=== PATIENT | female | born 1985 | race Caucasian/White ===

== ENCOUNTER 2017-01-04 00:51 | Emergency (ER) | payer MEDICAID ==
[~2017-01-04] VITALS: Ht 154.9 cm; Wt 65.0 kg
[~2017-01-04 00:51] MED LIST: CIPR-9 PO; IBUP1TAB7 PO; PHEN0.4T PO
[2017-01-04 00:54] VITALS: BP 158/98; PULSE 89; RESP 16; TEMP 98.2; O2SAT 100
[2017-01-04] MEDS ORDERED: PRED50 PO (01:31)
[2017-01-04] MEDS ORDERED: ROBA750T PO (01:31)
[2017-01-04] MEDS ORDERED: IBUP1TAB7 PO (01:31)
--- NOTE | 2017-01-04 01:32 | PD ---
HPI Chief Complaint: Back/ Neck Pain or Injury Time Seen by Provider: 01:17 Travel History International Travel<30 days: No Contact w/Intl Traveler<30days: No Traveled to known affect area: No History of Present Illness HPI Patient is a 31-year-old female presented to emergency from for evaluation of upper back pain. Patient states it's been going on for approximately one week. She has not taken any medications to alleviate her pain. She denies any injury or trauma but reports a chronic history of upper back pain due to slipped disks, bulging disks. She denies any numbness or tingling in her upper extremities, she denies any headache or weakness. She rates her pain is a 7 out of 10 and states it's sore and aching. Patient states that she is in between primary doctors and her next appointment isn't until January 24, she normally takes Vicoprofen which was prescribed by her previous PCP. PFSH Past Medical History Hx Anticoagulant Therapy: No Cardiovascular Problems: No Chemotherapy: No Cerebrovascular Accident: No Diabetes: No Diminished Hearing: No Musculoskeletal: Yes (chronic back pain) Respiratory: No Immunizations Current: Yes Thyroid Disease: Yes (hyperthyroidism) Tetanus Vaccination: < 5 Years Influenza Vaccination: No ?: Not LMP: 01/02/2017 : 7 Para: 7 Past Surgical History Surgical History: No Previous Surgery Hysterectomy: No Social History Alcohol Use: No Tobacco Use: No Substance Use: No Allergies-Medications (Allergen,Severity, Reaction): Coded Allergies: Sulfa (Sulfonamide Antibiotics) (Unverified Allergy, Severe, Rash, ) amoxicillin (Unverified Allergy, Severe, Rash, 12/28/16) clavulanic acid (Unverified Allergy, Severe, Rash, 12/28/16) Reported Meds & Prescriptions Reported Meds & Active Scripts Active Cipro (Ciprofloxacin HCl) 500 Mg Tab 500 Mg PO BID 3 Days Pyridium (Phenazopyridine HCl) 100 Mg Tab 100 Mg PO Q8H PRN 3 Days Cipro (Ciprofloxacin HCl) 500 Mg Tab 500 Mg PO BID 7 Days Reported Ibuprofen 800 Mg Tab 800 Mg PO Q6HR PRN Review of Systems Except as stated in HPI: all other systems reviewed are Neg Musculoskeletal: Positive: Myalgias, Arthralgias Physical Exam Narrative GENERAL: Well-developed, well-nourished, alert female. Resting comfortably in no acute distress. SKIN: Warm and dry. HEAD: Normocephalic. EYES: No scleral icterus. No injection or drainage. NECK: Supple, trachea midline. No JVD or lymphadenopathy. Full range of motion with rotation, flexion and extension of neck. No meningeal signs noted. No spinal tenderness or step-off noted. CARDIOVASCULAR: Regular rate and rhythm without murmurs, gallops, or rubs. RESPIRATORY: Breath sounds equal bilaterally. No accessory muscle use. GASTROINTESTINAL: Abdomen soft, non-tender, nondistended. MUSCULOSKELETAL: No cyanosis, or edema. Mildly tender to palpation in the paraspinal musculature and thoracic region. No spinal tenderness or step-off noted. BACK: Nontender without obvious deformity. No CVA tenderness. Data Data Last Documented VS Vital Signs Date Time Temp Pulse Resp B/P (MAP) Pulse Ox O2 Delivery O2 Flow Rate FiO2 01/04/17 00:54 98.2 89 16 158/98 (118) 100 Room Air [facility] Medical Decision Making Medical Screen Exam Complete: Yes Emergency Medical Condition: Yes Medical Record Reviewed: Yes Interpretation(s) Vital Signs Date Time Temp Pulse Resp B/P (MAP) Pulse Ox O2 Delivery O2 Flow Rate FiO2 01/04/17 00:54 98.2 89 16 158/98 (118) 100 Room Air Differential Diagnosis Strain versus sprain versus spasm versus discogenic pain versus other Narrative Course Patient is a 31-year-old female presenting to the emergency room evaluation of acute on chronic upper back pain with no preceding injury or trauma. There are no focal deficits noted on exam. Patient is not taking any medications to alleviate her pain at home prior to presenting to the emergency department. At this point patient was offered anti-inflammatory medications as well as a muscle relaxer. Initially she stated that she has ibuprofen at home and muscle relaxers make her drowsy. She was encouraged to trial conservative management until she can see her primary doctor. Patient stated that it was Flexeril specifically that made her feel drowsy, she will be provided with a prescription for Robaxin at this time. She was encouraged return to emergency department for any new or worsening symptoms. Patient verbalized understanding of instructions. Patient stable for discharge. Diagnosis Primary Impression: Back pain Qualified Codes: M54.9 - Dorsalgia, unspecified Referrals: Primary Care Physician call for appointment As scheduled on the Patient Instructions: Back Pain (ED), General Instructions Additional Instructions: Follow-up with her primary doctor as scheduled Apply warm heat to the affected area, continue range of motion exercises, avoid bed rest, avoid exacerbating activities Return to emergency department for any new or worsening symptoms Take Medications as directed Med/Other Pt SpecificInfo: Prescription(s) given Scripts Methocarbamol (Robaxin) 750 Mg Tab 1500 MG PO TID for Muscle Spasm, #30 TAB 0 Refills Prov: Katlin Johnson 01/04/17 Prednisone (Prednisone) 50 Mg Tab 50 MG PO DAILY for 3 Days, #3 TAB 0 Refills Prov: Katlin Johnson 01/04/17 Ibuprofen (Ibuprofen) 800 Mg Tab 800 MG PO Q6HR Y for PAIN, #40 TAB 0 Refills Prov: Katlin Johnson 01/04/17 Disposition: 01 DISCHARGE HOME Condition: Stable Katlin Johnson Jan 04, 2017 01:32
== END 2017-01-04 02:10 | disposition home or self-care (01) ==
LOC: NEPD 00:51
DX: M54.9 Dorsalgia, unspecified (principal)
CPT/HCPCS: 99284